=== PATIENT | female | born 1945 | race Caucasian/White ===

== ENCOUNTER 2023-12-15 11:59 | Emergency (ER) | payer MEDICARE, SELFPAY ==
[2023-12-15 12:04] VITALS: BP 167/99
--- NOTE | 2023-12-15 13:29 | ED.MUSCINJ ---
HPI-Injury
General
Chief Complaint: Fall
Source: patient
Exam Limitations: none
Time Seen by Provider: 12/15/23 12:58
Nursing documentation reviewed up to this point in time: agreed with
Travel History
Have you had any contact with someone who has COVID-19?: No
Do you have any symptoms of coronavirus? Fever > 100 degrees, chills, cough, shortness of breath, sore throat, loss of taste or smell, muscle aches, or headache?: No
History of Present Illness-Injury
Initial Injury comments:
78-year-old female tripped on the sidewalk outside the [employer] within past 2 hours injuring her left knee and left hand fingers 2,3,4, scraped right wrist. Denies hitting head, was able to get up and ambulate afterwards. Denies neck or back
pain.
Past History
Past History
ED Past Medical History: Hypercholesterolemia and Other (Heavy bleeding after surgery)
ED Past Surgical History: Gynecological
Social History
Tobacco: Former smoker
Drug: None
Living: with family
Family History
Family History: Other
Review of Systems
Review of Systems
Allergies reviewed?: Yes
All Other Systems: ROS reviewed and negative except as documented in HPI and ROS
Cardiac: Denies chest pain
ABD/GI: Denies abdominal pain
Musculoskeletal: Reports other (Pain 3 middle fingers of left hand, pain left knee); Denies neck pain or back pain
Skin: Reports other (Scrape right wrist)
Neurological: Reports no symptoms
Phy Exam
Physical Exam
Physical Exam:
GENERAL: No acute distress. A&Ox3.
CONSTITUTIONAL: Afebrile.
EYES: PERRL, conjunctivae normal
ENMT: moist mucus membranes, Pharynx nl
RESPIRATORY: Regular respirations, nonlabored, lungs clear.
CARDIOVASCULAR: Regular rate and rhythm, no murmurs, no rubs.
GI: Soft, nontender, normal BS
MUSCULOSKELETAL: No spinal bony tenderness. Moves with ease. Well perfused.
Left knee with superficial abrasion, minimal swelling, mildly tender. Full range of motion. Distal neurovascular intact
Left hand with pain and swelling of the 3 middle fingers, good capillary refill, distal neurovascular intact.
Right wrist w no bony tenderness, full ROM
SKIN: Warm, dry, pink, superficial abrasions right wrist.
PSYCH: Normal mood and affect. Well kept, interactive and appropriate
NEUROLOGIC: Awake, alert and oriented. No focal neurological deficits
Injury Course
Orders/Labs/Results
Orders:
Orders
12/15/23 12:13
CR Finger(s)/thumb Min 2 Vw Lt Urgent
Comment:
Reason For Exam: injury
Indicate Which Finger:: Index Finger
CR Knee - Left 4 Or More View* Urgent
Comment:
Reason For Exam: inury/pain
12/15/23 13:30
Volar Left-Treatment ONCE
MDM/Problems Addressed
MDM/Problems Addressed:
78-year-old female tripped on the sidewalk outside the [employer] within past 2 hours injuring her left knee and left hand fingers 2,3,4, scraped right wrist. Denies hitting head, was able to get up and ambulate afterwards. Denies neck or back
pain.
Left knee xray neg for fracture, + DJD, ambulating well.
Left hand xray read by this examiner initially: subtle fracture base proximal phalanx index finger, no other fracture noted.
For pain in all 3 fingers pt requests splinting of all three fingers. Volar splint applied to 3 fingers left hand and aluminum splint for index finger sent home with pt to use for index finger when she removes the volar splint
Follow up with orthopedics for finger fracture.
*Critical Care Note
Total Time (30-74mins, 75-104mins- exclusive of procedures): Not Applicable
ED Attending Note
-
Portions of this chart may have been created with voice recognition software.� Occasional wrong word or��sound alike� substitutions may have occurred due to the inherent limitations of voice recognition software.
Discharge Plan
Departure
Patient Disposition: Home (Routine Discharge)
Date of Disposition: 12/15/23
Time of Disposition: 13:54
Patient with high blood pressure during this ER visit?: No
Condition: Good
Discharge Problem:
Fall from slip, trip, or stumble, Contusion of left knee, Contusion of left hand including fingers, Closed fracture of phalanx of left index finger
Instructions: Contusion (DC), Preventing falls in adults, Finger Fracture (DC)
Prescriptions:
No Action
lisinopril 20 MG tablet
40 mg PO DAILY
peg 400-propylene glycol (PF) [Systane (PF)] 1 EACH dropperette
2 ea BOTH EYES BID
psyllium husk (aspartame) [Metamucil Fiber Singles] 1 PACKET powder in packet
1 packet PO HS
apixaban [Eliquis] 5 MG tablet
5 mg PO BID Qty: 60 3RF
diltiazem HCl 180 MG capsule,extended release 24hr
180 mg PO DAILY Qty: 30 3RF
atenolol 25 MG tablet
25 mg PO HS Qty: 0 0RF
atorvastatin 10 MG tablet
10 mg PO HS
lorazepam 0.5 MG tablet
0.5 mg PO PRN (Reason: anziety)
Referrals:
Eagle Barraza MD [Active] - Call in 1-3 days for appt
Jim Noonan MD [Family Provider] -
Activity Restrictions/Additional Instructions:
As we discussed, your knee x-ray shows no bony abnormality. You have a contusion of the knee.
Your left hand fingers have contusions.
The left index finger has a subtle fracture at the base of the finger.
Wear the splint until further instructed by the orthopedic doctor. Call him first thing Sunday morning and make next available appointment.
You may remove the splint and apply just the index finger aluminum splint in 2 or 3 days if your other fingers are feeling better.
Tylenol as needed for pain.
Interventions
Interventions:
*Risk Screen - Suicide Last Done: 12/15/23 12:04
*Neglect/Abuse Screening Last Done: 12/15/23 12:04
ED- Fall Risk Assessment Last Done: 12/15/23 14:20
*ED COVID-19 Vaccine History Last Done: 12/15/23 12:04
*Nursing Disposition Last Done: 12/15/23 14:20
ED-Musculoskeletal Assessment Last Done: 12/15/23 14:16
ED- Neurological Assessment Last Done: 12/15/23 14:16
ED-Skin Assessment Last Done: 12/15/23 14:16
Discharge Date and Time
Discharge Date/Time: 12/15/23 14:21
== END 2023-12-15 14:21 | disposition home or self-care (01) ==
LOC: EMR 11:59
PROVIDERS: EMERGENCY PHYSICIAN Emergency Medicine; FAMILY PHYSICIAN Family Medicine
DX: S62.611A Displaced fracture of proximal phalanx of left index finger, initial encounter for closed fracture (principal); S80.02XA Contusion of left knee, initial encounter; S60.222A Contusion of left hand, initial encounter; S60.811A Abrasion of right wrist, initial encounter; S80.212A Abrasion, left knee, initial encounter; W01.0XXA Fall on same level from slipping, tripping and stumbling without subsequent striking against object, initial encounter; Y92.480 Sidewalk as the place of occurrence of the external cause; I48.91 Unspecified atrial fibrillation; I10 Essential (primary) hypertension; E78.00 Pure hypercholesterolemia, unspecified; M17.12 Unilateral primary osteoarthritis, left knee; Z87.891 Personal history of nicotine dependence; Z79.01 Long term (current) use of anticoagulants
CPT/HCPCS: 99283; 29125; 73140; 73564

== ENCOUNTER → 2024-01-17 06:57 | Outpatient (REF) | payer MEDICARE, SELFPAY | LOC: PAVMRI 06:57 | PROVIDERS: ATTENDING PHYSICIAN Orthopaedic Surgery; FAMILY PHYSICIAN Family Medicine | DX: M25.562 Pain in left knee (principal) | CPT/HCPCS: 73721 ==